=== PATIENT | female | born 2000 | race American Indian/Alaskan Native ===

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

== ENCOUNTER 2022-08-22 22:14 | Emergency (ER) | payer BC, MEDICAID ==
[2022-08-22 22:30] VITALS: BP 114/71; PULSE 92
[2022-08-22] MEDS ORDERED: Ondansetron 4 MG Tab.DIS PO ONE (22:57)
[2022-08-22 23:47] LABS: CARBON DIOXIDE,CO2 23.6 mmol/L (21.0-32.0); POTASSIUM,K 3.5 mmol/L (3.5-5.1)
== END 2022-08-23 00:06 | disposition home or self-care (01) ==
LOC: MW.ED 22:14
DX: R10.9 Unspecified abdominal pain (principal); K21.9 Gastro-esophageal reflux disease without esophagitis; E66.9 Obesity, unspecified; Z68.30 Body mass index [BMI] 30.0-30.9, adult
CPT/HCPCS: 36415; 80053; 81001; 81025; 83690; 84703; 85025; 99284; A9270